=== PATIENT | female | born 1980 | race Caucasian/White ===

== ENCOUNTER 2016-05-10 09:05 | Emergency (ER) | payer OTHER ==
[~2016-05-10] VITALS: Ht 167.6 cm; Wt 65.0 kg
[~2016-05-10 09:05] MED LIST: VALT500T OR
[2016-05-10 09:16] VITALS: BP 120/83; PULSE 81; RESP 20; O2SAT 99
[2016-05-10] MEDS ORDERED: SODIUM CHLOR 0.9% 1000 ML INJ 1,000 ML IV SCH (10:01)
--- NOTE | 2016-05-10 10:01 | PD ---
HPI Chief Complaint: Dizziness Time Seen by Provider: 10:01 Travel History International Travel<30 days: No Contact w/Intl Traveler<30days: No Traveled to known affect area: No History of Present Illness HPI 36-year-old female presents to the emergency department with complaint of dizziness at onset at approximately 8 AM this morning. She is employed at [employer] and was at work when this started. Reports the dizziness came in waves. She tried sitting down and dizziness became worse upon standing up. She did have an episode of feeling hot and became nauseated without vomiting. Last week she did take an antihistamine for what she felt like fluid in her ears with resolution of symptoms. Denies headache, focal deficits or weakness. Reports feeling lightheaded and as if she was going to pass out. Denies change in vision. Denies recent illness of cough, nasal congestion, fever, chills. Denies chest pain, heart palpitations, shortness breath, abdominal pain. Has not taken any medications or tried any treatments to alleviate her symptoms. No known relieving factors. No known allergies. Currently on menses and is regular. Dr. Moore is primary care provider. Has an appointment with her primary tomorrow at 10:30 AM. Denies a Past medical history. No other modifying factors or associated signs and symptoms. PFSH Past Medical History Medical History: Denies Significant Hx Cancer: No Diabetes: No Hepatitis: No Hiatal Hernia: No Thyroid Disease: No : 4 Para: 2 : 2 Past Surgical History Pacemaker: No Social History Alcohol Use: No Tobacco Use: Yes (SOCIALLY) Substance Use: No Allergies-Medications (Allergen,Severity, Reaction): Coded Allergies: No Known Allergies (Verified , 05/10/16) Reported Meds & Prescriptions Reported Meds & Active Scripts Active Reported Valtrex (Valacyclovir HCl) 500 Mg Tab 500 Mg OR PRN Review of Systems Except as stated in HPI: all other systems reviewed are Neg Physical Exam Narrative GENERAL: Well-nourished, well-developed female patient, in no acute distress SKIN: Warm and dry. HEAD: Atraumatic. Normocephalic. No facial droop noted. Tongue midline. EYES: Pupils equal and round at 3 mm with brisk reaction. No scleral icterus. No injection or drainage. PERRLA. EOMI. ENT: Mucosa pink and moist. No erythema or exudates. No uvular edema. No uvular , palatal, or tonsillar deviation. Airway patent. Nasal turbinates appear normal without nasal blood, purulent drainage or septal hematoma.t. EARS: Bilateral pinnae and external canals appear within normal limits. Bilateral tympanic membranes without erythema, dullness or perforation. NECK: Trachea midline. No lymphadenopathy. CARDIOVASCULAR: Regular rate and rhythm. No murmur appreciated. RESPIRATORY: No accessory muscle use. Clear to auscultation. Breath sounds equal bilaterally. GASTROINTESTINAL: Abdomen soft, non-tender, nondistended. Hepatic and splenic margins not palpable. Bowel sounds are active 4 quadrants. MUSCULOSKELETAL: No obvious deformities. No clubbing. No cyanosis. No edema. NEUROLOGICAL: Awake and alert. Oriented 3. No obvious cranial nerve deficits. Motor grossly within normal limits. Normal speech. No ataxia. No mid -line drift. Moves all extremities. 5/5 strength to all extremities. PSYCHIATRIC: Appropriate mood and affect; insight and judgment normal. Data Data Last Documented VS Vital Signs Date Time Temp Pulse Resp B/P Pulse Ox O2 Delivery O2 Flow Rate FiO2 05/10/16 10:55 64 20 134/87 05/10/16 09:16 99 Room Air Orders Electrocardiogram (05/10/16 09:46) Basic Metabolic Panel (Bmp) (05/10/16 10:01) Complete Blood Count With Diff (05/10/16 10:01) Iv Access Insert/Monitor (05/10/16 10:01) Ondansetron Inj (Zofran Inj) (05/10/16 10:15) Sodium Chlor 0.9% 1000 Ml Inj (Ns 1000 M (05/10/16 10:01) Sodium Chloride 0.9% Flush (Ns Flush) (05/10/16 10:15) Orthostatic Vital Signs (05/10/16 10:01) Meclizine (Antivert) (05/10/16 10:15) Labs Laboratory Tests Test 05/10/16 10:15 White Blood Count 7.1 TH/MM3 Red Blood Count 4.29 MIL/MM3 Hemoglobin 13.5 GM/DL Hematocrit 38.8 % Mean Corpuscular Volume 90.5 FL Mean Corpuscular Hemoglobin 31.4 PG Mean Corpuscular Hemoglobin 34.7 % Concent Red Cell Distribution Width 13.0 % Platelet Count 290 TH/MM3 Mean Platelet Volume 7.6 FL Neutrophils (%) (Auto) 71.3 % Lymphocytes (%) (Auto) 21.4 % Monocytes (%) (Auto) 5.8 % Eosinophils (%) (Auto) 1.0 % Basophils (%) (Auto) 0.5 % Neutrophils # (Auto) 5.0 TH/MM3 Lymphocytes # (Auto) 1.5 TH/MM3 Monocytes # (Auto) 0.4 TH/MM3 Eosinophils # (Auto) 0.1 TH/MM3 Basophils # (Auto) 0.0 TH/MM3 CBC Comment DIFF FINAL Differential Comment Sodium Level 137 MEQ/L Potassium Level 4.1 MEQ/L Chloride Level 102 MEQ/L Carbon Dioxide Level 28.0 MEQ/L Anion Gap 7 MEQ/L Blood Urea Nitrogen 10 MG/DL Creatinine 0.86 MG/DL Estimat Glomerular Filtration 74 ML/MIN Rate Random Glucose 95 MG/DL Calcium Level 8.9 MG/DL MDM Medical Decision Making Medical Screen Exam Complete: Yes Emergency Medical Condition: Yes Medical Record Reviewed: Yes Differential Diagnosis Dizziness, near syncope, electrolyte imbalance, arrhythmia, dehydration Narrative Course 36-year-old female, [employer] employee, with dizziness that onset at approximately 8 AM this morning. Neuro exam and physical exam is unremarkable. I spoke with Dr. Figueroa, my attending physician, and he agreed with my plan of care. EKG with normal sinus rhythm. IV site obtained. CBC, BMP ordered. Normal saline bolus ordered. Meclizine and Zofran ordered. Orthostatic vital signs ordered. 1102: CBC and BMP unremarkable. Orthostatic vital signs unremarkable. 1110: She reports improvement in dizziness and nausea. She does state after orthostatic vital signs when the nurse laid her back she did get dizzy again. Zofran prescribed for home. Instructed patient to take [id number] meclizine as directed and as needed for continued dizziness. Patient has appointment with primary care provider tomorrow morning at 10:30 AM and she will follow-up at that appointment. Patient is medically cleared and stable for discharge. Discussed reasons to return to the emergency department. Instructed patient to follow up with primary care provider. Patient agrees with treatment plan. The patients vital signs are stable and the patient is stable for outpatient follow-up and treatment. Patient discharged home, stable and in no acute distress. Diagnosis Primary Impression: Dizziness Referrals: Primary Care Physician Patient Instructions: Dizziness (ED), General Instructions Departure Forms: Tests/Procedures, Work Release Enter return to work date: May 12, 2016 Additional Instructions: [id number] meclizine as directed and as needed for dizziness Zofran as prescribed and as needed for nausea/vomiting Follow-up with primary care provider Return to the emergency department immediately with worsening of symptoms Med/Other Pt SpecificInfo: Prescription(s) given Scripts Ondansetron Odt (Zofran Odt)4 Mg Tab4 Mg SL Q8HR PRN (Nausea/Vomiting) #10 TAB Ref 0 Prov:Aarti Akhtar 05/10/16 Disposition: 01 DISCHARGE HOME Condition: Stable Aarti Akhtar May 10, 2016 10:01
[2016-05-10] MEDS ORDERED: SODIUM CHLORIDE 0.9% FLUSH 5 ML FLUSH IVF PRN (10:15)
[2016-05-10] MEDS ORDERED: MECLIZINE HCL 25 MG TAB PO ONE (10:15)
[2016-05-10] MEDS ORDERED: ONDANSETRON HCL 4 MG/2 ML VIAL IVP ONE (10:15)
[2016-05-10 10:36] LABS: BASOPHIL % 0.5 % (0.0-2.0); EOSINOPHIL # 0.1 TH/MM3 (0-0.4); HEMATOCRIT 38.8 % (35.0-46.0); HEMO FLAGS DIFF FINAL; LYMPH % 21.4 % (9.0-44.0); LYMPHOCYTE # 1.5 TH/MM3 (1.0-4.8); MEAN CELL VOLUME 90.5 FL (80.0-100.0); MEAN CORPUSCULAR HEMOGLOBIN 31.4 PG (27.0-34.0); MEAN CORPUSCULAR HGB CONC 34.7 % (32.0-36.0); MONO % 5.8 % (0.0-8.0); NEUT % 71.3 % (16.0-70.0); PLATELET COUNT 290 TH/MM3 (150-450); RED BLOOD COUNT 4.29 MIL/MM3 (4.00-5.30); WHITE BLOOD COUNT 7.1 TH/MM3 (4.0-11.0)
[2016-05-10 10:53] VITALS: BP 138/90; RESP 20
[2016-05-10 10:54] VITALS: BP 125/87; RESP 20
[2016-05-10 10:55] VITALS: BP 134/87; RESP 20
[2016-05-10 10:59] LABS: POTASSIUM 4.1 MEQ/L (3.5-5.1)
[2016-05-10] MEDS ORDERED: ZOFR4TAB3 SL (11:04)
--- NOTE | 2016-05-10 22:40 | EKG ---
Date Performed: 05/10/2016 Time Performed: 09:48:35 PTAGE: 36 years EKG: Sinus rhythm NORMAL ECG NO PREVIOUS TRACING DOCTOR: Danielle Cortez Interpretating Date/Time 05/10/2016 22:39:44
== END 2016-05-10 11:44 | disposition home or self-care (01) ==
LOC: NEPB 09:05
DX: R42 Dizziness and giddiness (principal); Z72.0 Tobacco use; R11.0 Nausea
CPT/HCPCS: 80048; 85025; 93005; 96374; 99284; J2405; J7030